=== PATIENT | male | born 1945 | race Caucasian/White ===

== ENCOUNTER → 2023-03-27 10:16 | Outpatient (BNVA) | payer MEDICARE, SELFPAY | PROVIDERS: PCP Nurse Practitioner; Referring Provider Nurse Practitioner; Visit Provider Specialist | DX: G20.A1 Parkinson's disease without dyskinesia, without mention of fluctuations (principal); H93.3X3 Disorders of bilateral acoustic nerves; Z99.89 Dependence on other enabling machines and devices | CPT/HCPCS: 99205 ==

== ENCOUNTER 2023-04-17 09:12 | Outpatient (CLI) | payer MEDICARE, SELFPAY ==
[2023-04-17] MEDS: gadobenate dimeglumine 20 mL vial IV (10:14)
--- NOTE | 2023-04-17 10:15 | MR_ITS ---
WS: [id number] MRI HEAD WITH CONTRAST WITH ATTENTION TO THE INTERNAL AUDITORY CANALS TECHNIQUE: Sagittal T1, T2 axial, T2 axial flair, axial susceptibility weighted imaging, axial diffus ion weighted images, and coronal T2 images were obtained. Pre and post T1 axial and post T1 coronal i mages. ADC and FSPGR images. Post gadolinium images with attention to the internal auditory canals. A xial fiesta imaging. CLINICAL INFORMATION: G20.A1 - Parkinson's disease without dyskinesia, without ... 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 Today this measures approximately 2.1 x 1.8 x 1.8 cm AP by transverse by craniocaudal. This measures approximately 1.1 x 1.1 x 1.0 cm on the outside [facility]. Mild mass effect today on the RIGHT brachium pontis is new from the outside study. No significa nt underlying edema. CP angle mass results in mass effect on the RIGHT trigeminal nerve at the level of the josé. No restricted diffusion to suggest acute ischemia. No hemosiderin on the susceptibly weighted images. LEFT 7th and 8th cranial nerves are normal. Normal LEFT trigeminal nerve root entry zone. Small chronic lacunar infarcts RIGHT cerebellum. Mastoid air cells are well aerated. Normal vascular flow voids at the skull base. No extra-axial fluid collections. Mild polypoid mucosal thickening in t he maxillary sinuses. Normal posterior nasopharynx. Normal parapharyngeal fat. Normal optic chiasm an d pituitary infundibulum. Mild small vessel changes with moderate parenchymal volume loss. Small vessel changes in the josé. Pa renchymal volume loss appears slightly progressed compared to 2020. Moderate symmetric atrophy tempor al lobes and hippocampal formations. IMPRESSION: 1. 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 New mass effect on the RIGHT brachium pontis. No significant underlying edema. In addition, this compresses the RIGHT trigeminal nerve at the level of the josé. 3. Mild small vessel changes with moderate parenchymal volume loss slightly progressed compared to p revious. Small vessel changes in the josé. 4. Small chronic lacunar infarct RIGHT cerebellum.
== END 2023-04-17 09:13 | disposition home or self-care (01) ==
LOC: RAD 09:12
PROVIDERS: PCP Nurse Practitioner; Visit Provider Specialist
DX: G20.A1 Parkinson's disease without dyskinesia, without mention of fluctuations (principal); D33.3 Benign neoplasm of cranial nerves; G93.9 Disorder of brain, unspecified; Z86.73 Personal history of transient ischemic attack (TIA), and cerebral infarction without residual deficits
CPT/HCPCS: 70553; A9577

== ENCOUNTER → 2023-07-12 13:25 | Outpatient (BNVA) | payer MEDICARE, SELFPAY | PROVIDERS: PCP Nurse Practitioner; Visit Provider Specialist | DX: G20.A1 Parkinson's disease without dyskinesia, without mention of fluctuations (principal) | CPT/HCPCS: 99214; 99215 ==

== ENCOUNTER → 2024-01-15 13:24 | Outpatient (BNVA) | payer MEDICARE, SELFPAY | PROVIDERS: PCP Nurse Practitioner; Visit Provider Specialist | DX: G20.A1 Parkinson's disease without dyskinesia, without mention of fluctuations (principal); D33.3 Benign neoplasm of cranial nerves; G50.0 Trigeminal neuralgia | CPT/HCPCS: 99214; 99215 ==

== ENCOUNTER → 2024-06-24 12:08 | Outpatient (BNVA) | payer MEDICARE, SELFPAY | PROVIDERS: PCP Nurse Practitioner; Visit Provider Specialist | DX: G20.A1 Parkinson's disease without dyskinesia, without mention of fluctuations (principal); G50.0 Trigeminal neuralgia; D33.3 Benign neoplasm of cranial nerves | CPT/HCPCS: 99213 ==